=== PATIENT | female | born 1965 | race Two or more races ===

== ENCOUNTER 2023-06-06 06:59 | Day surgery (SDC) | payer OTHER, SELFPAY ==
[2023-06-06 11:42] VITALS: BMI 19.3
[2023-06-06 11:43] VITALS: BMI 19.3
[2023-06-06 13:08] VITALS: BP 91/60
[2023-06-06 13:15] VITALS: BP 91/58
[2023-06-06 13:30] VITALS: BP 93/66
[2023-06-06 13:40] VITALS: BP 94/55
== END 2023-06-06 14:15 | disposition home or self-care (01) ==
LOC: SDS 06:59
PROVIDERS: ATTENDING PHYSICIAN Internal Medicine Gastroenterology
DX: K83.8 Other specified diseases of biliary tract (principal); K86.89 Other specified diseases of pancreas
CPT/HCPCS: 43237